=== PATIENT | male | born 1985 | race Caucasian/White ===

== ENCOUNTER 2017-11-04 13:07 | Emergency (ER) | payer MEDICAID ==
[~2017-11-04] VITALS: Ht 172.7 cm; Wt 105.2 kg
[2017-11-04 13:12] VITALS: BP 139/88
--- NOTE | 2017-11-04 13:20 | NUR ---
32M BIB SELF C/O EPIGASTRIC PAIN, BURNING, RADIATES TO BL LOWER ABDOMEN, 8/10 WITH VOMITING AND DIRRHEA X 1 WEEK; PT C/O 2 EPISODES OF VOMITING TODAY, AND 3 EPISODES OF DIARRHEA TODAY; ABDOMEN SOFT, NON-TENDER, ACTIVE BOWEL SOUNDS X 4 QUADRANTS; PT AA&OX4, BL LUNG SOUNDS CLEAR, RR EVEN/UNLABORED, SKIN IS WARM/DRY/INTACT WITH STEADY GAIT; PT RESTING IN OF, POSITIONED FOR COMFORT; ER MD MADE AWARE OF STATUS. WILL CONTINUE TO MONITOR.
[2017-11-04] MEDS ORDERED: DICYCLOMINE HCL LIQUID 20 MG, ALUMINUM HYD/MAG/SIMETHICONE 30 ML, LIDOCAINE VISCOUS 2% ... PO ONE ×3 (13:30)
--- NOTE | 2017-11-04 13:38 | NUR ---
LAB AT FOR BLOOD DRAW.
[2017-11-04 13:46] LABS: BASOPHILS # (AUTO) 0.2 K/uL (0.00-0.22); BASOPHILS % (AUTO) 2.1 % (0.0-2.0); EOSINOPHILS # (AUTO) 0.3 K/uL (0-0.4); EOSINOPHILS % (AUTO) 4.2 % (0.0-4.0); HEMATOCRIT 44.5 % (36-52); HEMOGLOBIN 14.9 g/dL (12.0-18.0); LYMPHOCYTES # (AUTO) 1.2 K/uL (2.0-11.5); LYMPHOCYTES % (AUTO) 15.5 % (20.5-51.1); MEAN CORPUSCULAR HEMOGLOBIN 28 pg (27-31); MEAN CORPUSCULAR HGB CONC 34 g/dL (33-37); MEAN CORPUSCULAR VOLUME 82 fL (80-94); MONOCYTES # (AUTO) 0.5 K/uL (0.8-1.0); MONOCYTES % (AUTO) 6.1 % (1.7-9.3); NEUTROPHILS # (AUTO) 5.8 K/uL (1.8-7.7); NEUTROPHILS % (AUTO) 72.1 % (42.2-75.2); PLATELET COUNT (AUTO) 190 K/uL (140-450); RED BLOOD CELL COUNT(AUTO) 5.44 MIL/uL (4.20-6.10); RED CELL DISTRIBUTION WIDTH 12.4 % (11.6-13.7); WHITE BLOOD COUNT (AUTO) 7.9 K/uL (4.8-10.8)
[2017-11-04 14:09] LABS: ALBUMIN 4.3 g/dL (3.4-5.0); ANION GAP 13.6 (8-16); CARBON DIOXIDE 28.3 mmol/L (21-32); CREATININE 0.9 mg/dL (0.7-1.3); POTASSIUM 3.9 mmol/L (3.5-5.1); TOTAL BILIRUBIN 0.5 mg/dL (0.0-1.0)
--- NOTE | 2017-11-04 14:26 | NUR ---
PT TAKEN TO CT VIA W/C ACCOMPANIED BY DIAMOND PICKER.
[2017-11-04 15:24] VITALS: BP 146/91
--- NOTE | 2017-11-04 15:24 | NUR ---
Patient discharged with v/s stable. Written and verbal after care instructions given and explained. Patient alert, oriented and verbalized understanding of instructions. Ambulatory with to car. All questions addressed prior to discharge. ID band removed. Patient advised to follow up with PMD. Rx of BENTYL 20MG TAB given. Patient educated on indication of medication including possible reaction and side effects. Opportunity to ask questions provided and answered.
== END 2017-11-04 15:24 | disposition home or self-care (01) ==
LOC: MED 13:07
DX: R10.13 Epigastric pain (principal); R11.2 Nausea with vomiting, unspecified; R19.7 Diarrhea, unspecified
CPT/HCPCS: 36415; 80053; 83690; 85025; 99285

== ENCOUNTER 2018-09-13 16:37 | Emergency (ER) | payer MEDICAID ==
[~2018-09-13] VITALS: Ht 172.7 cm; Wt 106.6 kg
[2018-09-13 16:44] VITALS: BP 128/67
--- NOTE | 2018-09-13 17:00 | NUR ---
BIB SELF C/O FLANK PAIN RADIATING DOWN LEFT SIDE X 1 MONTH, WORST TODAY. 8/10 PAIN SCALE. DENIES N/V/D; SKIN IS PINK/WARM/DRY; AAOX4 WITH EVEN AND STEADY GAIT; LUNGS CLEAR BL; HR EVEN AND REGULAR; PT DENIES ANY FEVER, CP, SOB, OR COUGH AT THIS TIME; VSS; PATIENT POSITIONED FOR COMFORT; HOB ELEVATED; BEDRAILS UP X2; BED DOWN. ER MD MADE AWARE OF PT STATUS.
--- NOTE | 2018-09-13 18:00 | NUR ---
PA AT BEDSIDE.
[2018-09-13 18:36] VITALS: BP 128/67
--- NOTE | 2018-09-13 18:36 | NUR ---
Patient discharged with v/s stable. Written and verbal after care instructions given and explained. Patient alert, oriented and verbalized understanding of instructions. Ambulatory with steady gait. All questions addressed prior to discharge. ID band removed. Patient advised to follow up with PMD. Rx of TRAMADOL, MOTRIN given. Patient educated on indication of medication including possible reaction and side effects. Opportunity to ask questions provided and answered.
== END 2018-09-13 18:36 | disposition home or self-care (01) ==
LOC: MED 16:37
DX: M54.5 Low back pain (principal)
CPT/HCPCS: 81002; 99283

== ENCOUNTER 2022-04-07 21:40 | Emergency (ER) | payer MEDICAID ==
[~2022-04-07] VITALS: Ht 170.2 cm; Wt 108.9 kg
[2022-04-07 21:54] VITALS: BP 133/76
--- NOTE | 2022-04-08 01:04 | NUR ---
Called first time-no show in lobby or outside.
--- NOTE | 2022-04-08 01:17 | NUR ---
Called second time-no show in lobby or outside.
--- NOTE | 2022-04-08 01:19 | NUR ---
PATIENT LEFT WITHOUT BEING SEEN BY DR. AVALOS. NO FURTHER CARE PROVIDED FOR PATIENT.
== END 2022-04-08 01:19 | disposition left against medical advice (07) ==
LOC: MED 21:40
DX: H92.01 Otalgia, right ear (principal); Z53.21 Procedure and treatment not carried out due to patient leaving prior to being seen by health care provider

== ENCOUNTER 2022-12-03 20:15 | Emergency (ER) | payer MEDICAID ==
[~2022-12-03] VITALS: Ht 162.6 cm; Wt 108.9 kg
[2022-12-03 20:25] VITALS: BP 136/87
--- NOTE | 2022-12-03 20:28 | NUR ---
TO LOBBY A/W BED AMBULATORY
--- NOTE | 2022-12-03 23:09 | NUR ---
TO BED 3 FROM LOBBY
--- NOTE | 2022-12-03 23:20 | NUR ---
Patient resting in bed, A/Ox4, chest rise and fall symmetrical, no s/s of distress, patient on monitor.
[2022-12-03] MEDS ORDERED: KETOROLAC 30 MG/ML VIAL IM ONE (23:50)
[2022-12-04] MEDS ORDERED: MAG-27 PO (00:48)
[2022-12-04] MEDS ORDERED: NAPR-54 PO (00:48)
[2022-12-04 01:00] VITALS: BP 124/85
--- NOTE | 2022-12-04 01:05 | NUR ---
Patient resting in bed, A/Ox4, chest rise and fall symmetrical, no c/o pain or s/s of distress, patient on monitor.
[2022-12-04 01:28] LABS: APPEARANCE,URINE CLEAR (CLEAR); BILIRUBIN,URINE NEGATIVE (NEGATIVE); BLOOD, URINE NEGATIVE (NEGATIVE); COLOR,URINE YELLOW (YELLOW); LEUKOCYTE ESTERASE ,URINE NEGATIVE (NEGATIVE); NITRITE, URINE NEGATIVE (NEGATIVE); UGLUCOSE NEGATIVE (NEGATIVE)
== END 2022-12-04 01:36 | disposition home or self-care (01) ==
LOC: MED 20:15
DX: R07.89 Other chest pain (principal); Z79.899 Other long term (current) drug therapy; Z98.890 Other specified postprocedural states
CPT/HCPCS: 71045; 81003; 93005; 96372; 99285; J1885; Q0092

== ENCOUNTER 2023-01-14 15:58 | Emergency (ER) | payer MEDICAID ==
[~2023-01-14] VITALS: Ht 162.6 cm; Wt 113.4 kg
[~2023-01-14 15:58] MED LIST: MAG-27 PO; NAPR-54 PO
[2023-01-14 16:43] VITALS: BP 144/84
--- NOTE | 2023-01-14 17:07 | NUR ---
PT AMBULATED TO ER BED 7
--- NOTE | 2023-01-14 17:12 | NUR ---
AKIKO LEE AT BEDSIDE FOR EVALUATION
--- NOTE | 2023-01-14 17:15 | NUR ---
37YO MALE PT C/O ACHING ABD PAIN X1WEEK. REPORTS SUDDEN CONSTANT ONSET W/ PRESSURED PAIN AFTER EATING. ABD NON TENDER OR DISTENDED. DENIES N/V/D, FEVER, CHILLS OR RELIEF AFTER IBUPROFEN. PT AAOX4, NO VISIBLE DISTRESS. HOB POSITIONED PER COMFORT HX: DENIES NKA
[2023-01-14] MEDS ORDERED: ALUMINUM HYD/MAG/SIMETHICONE 30 ML, DICYCLOMINE HCL LIQUID 20 MG, LIDOCAINE VISCOUS 2% ... PO ONE ×3 (17:20)
[2023-01-14 17:23] LABS: BASOPHILS # (AUTO) 0.1 K/uL (0.00-0.22); BASOPHILS % (AUTO) 2.4 % (0.0-2.0); EOSINOPHILS # (AUTO) 0.9 K/uL (0-0.4); EOSINOPHILS % (AUTO) 15.8 % (0.0-4.0); HEMATOCRIT 42.8 % (36-52); HEMOGLOBIN 15.1 g/dL (12.0-18.0); LYMPHOCYTES # (AUTO) 1.7 K/uL (2.0-11.5); LYMPHOCYTES % (AUTO) 28.4 % (20.5-51.1); MEAN CORPUSCULAR HEMOGLOBIN 29 pg (27-31); MEAN CORPUSCULAR HGB CONC 35 g/dL (33-37); MEAN CORPUSCULAR VOLUME 83.1 fL (80-94); MONOCYTES # (AUTO) 0.5 K/uL (0.8-1.0); MONOCYTES % (AUTO) 8.5 % (1.7-9.3); NEUTROPHILS # (AUTO) 2.7 K/uL (1.8-7.7); NEUTROPHILS % (AUTO) 44.9 % (42.2-75.2); PLATELET COUNT (AUTO) 176 K/uL (140-450); RED BLOOD CELL COUNT(AUTO) 5.16 MIL/uL (4.20-6.10); RED CELL DISTRIBUTION WIDTH 13.7 % (11.6-13.7)
[2023-01-14] MEDS ORDERED: ALUMINUM HYD/MAG/SIMETHICONE 30 ML UDC ONE (17:28)
[2023-01-14] MEDS ORDERED: DICYCLOMINE HCL LIQUID 10 MG/5 ML UDC ONE (17:28)
[2023-01-14 17:33] LABS: APPEARANCE,URINE CLEAR (CLEAR); BILIRUBIN,URINE NEGATIVE (NEGATIVE); BLOOD, URINE NEGATIVE (NEGATIVE); COLOR,URINE YELLOW (YELLOW); LEUKOCYTE ESTERASE ,URINE NEGATIVE (NEGATIVE); NITRITE, URINE NEGATIVE (NEGATIVE); UGLUCOSE NEGATIVE (NEGATIVE)
--- NOTE | 2023-01-14 17:42 | NUR ---
pt taken to ct via w/c
[2023-01-14 17:44] LABS: ALBUMIN 4.1 g/dL (3.4-5.0); ANION GAP 13.3 (8-16); CARBON DIOXIDE 26.7 mmol/L (21-32); CREATININE 0.9 mg/dL (0.6-1.3); TOTAL BILIRUBIN 0.4 mg/dL (0.0-1.0)
--- NOTE | 2023-01-14 17:46 | NUR ---
pt brought back via w/c
--- NOTE | 2023-01-14 18:01 | NUR ---
The patient's care was reviewed and supervised by QUAN HURT RN.
[2023-01-14 18:22] VITALS: BP 138/83
[2023-01-14] MEDS ORDERED: ACET-10509 PO (19:07)
[2023-01-14] MEDS ORDERED: MAG-27 PO (19:07)
--- NOTE | 2023-01-14 19:19 | NUR ---
Patient discharged with v/s stable. Written and verbal after care instructions FOR ABD PAIN given and explained. Patient alert, oriented and verbalized understanding of instructions. Ambulatory with steady gait. All questions addressed prior to discharge. ID band removed. Patient advised to follow up with PMD. Rx of TYLENOL XTRA STRENGTH AND MYLANTA given. Opportunity to ask questions provided and answered.
== END 2023-01-14 19:19 | disposition home or self-care (01) ==
LOC: MED 15:58
DX: R10.13 Epigastric pain (principal); Z79.899 Other long term (current) drug therapy
CPT/HCPCS: 36415; 80053; 81003; 83690; 85025; 99284